=== PATIENT | female | born 1970 ===

== ENCOUNTER 2016-12-03 16:30 | Emergency (ER) | payer MEDICAID, OTHER ==
[2016-12-03 16:34] VITALS: BMI 30.9
[2016-12-03 16:35] VITALS: BP 130/88; RESP 18; TEMP 98.1
--- NOTE | 2016-12-03 16:58 | C.PDOC ---
History Of Present Illness 46 y/o female presents to the ED with complaints of pustular rash to right buttock x2 days. Pt with hx of herpes zoster. Denies fever, chills, or any other complaints. Time Seen by Provider: 12/03/16 16:44 Chief Complaint (Nursing): Abnormal Skin Integrity History Per: Patient History/Exam Limitations: no limitations Onset/Duration Of Symptoms: Days Current Symptoms Are (Timing): Still Present Severity: Mild Recent travel outside of the [place]: No Past Medical History Reviewed: Historical Data, Nursing Documentation, Vital Signs Vital Signs: Last Vital Signs Temp 98.1 F 12/03/16 16:34 Pulse 85 12/03/16 17:01 Resp 18 12/03/16 17:01 BP 130/88 12/03/16 16:34 Pulse Ox 98 12/03/16 17:01 - Medical History PMH: Comment Only: Schizophrenia (denies) - [facility] Procedures GROUP PSYCHOTHERAPY (10/06/16) INDIVIDUAL PSYCHOTHERAPY, BEHAVIORAL (10/06/16) Family History: States: Unknown Family Hx - Social History Hx Alcohol Use: No Hx Substance Use: No - Immunization History Hx Tetanus Toxoid Vaccination: No Hx Influenza Vaccination: No Hx Pneumococcal Vaccination: No Review Of Systems Constitutional: Negative for: Fever, Chills Skin: Positive for: Rash (right buttock) Physical Exam - Physical Exam Appears: Non-toxic, No Acute Distress Skin: Warm, Dry, Rash (Pustular not vesicular rash in right buttock area, 8x8 cm in diameter. Does not extend the dermatome, nontender) Head: Atraumatic, Normacephalic Extremity: Normal ROM Extremity: Bilateral: Atraumatic Neurological/Psych: Oriented x3, Normal Speech ED Course And Treatment O2 Sat by Pulse Oximetry: 96 (room air) Pulse Ox Interpretation: Normal Medical Decision Making Medical Decision [id number] circular area of PUSTULAR rash (not vesicular, as per triage note) non- tender consider folliculitis Disposition Doctor Will See Patient In The: Office Counseled Patient/Family Regarding: Studies Performed, Diagnosis - Disposition Referrals: [facility] [Outside] Disposition: HOME/ ROUTINE Disposition Time: 16:58 Condition: GOOD Additional Instructions: apply ointment to the rash twice a day do not scratch, this could make it infected. follow-up in our clinic in 2 days for a re-evaluation as needed. Instructions: Acute Rash (ED) - Clinical Impression Clinical Impression: Rash and nonspecific skin eruption - Scribe Statement The provider has reviewed the documentation as recorded by the Mariel Jimenez Provider Attestation: All medical record entries made by the Mariel were at my direction and personally dictated by me. I have reviewed the chart and agree that the record accurately reflects my personal performance of the history, physical exam, medical decision making, and the department course for this patient. I have also personally directed, reviewed, and agree with the discharge instructions and disposition.
[2016-12-03 17:02] VITALS: PULSE 85
[2016-12-03 17:48] VITALS: O2SAT 96
== END 2016-12-03 17:03 | disposition home or self-care (01) ==
LOC: C.ER 16:30
DX: R21 Rash and other nonspecific skin eruption (principal)